=== PATIENT | female | born 1985 | race Caucasian/White ===

== ENCOUNTER 2017-04-06 08:07 | Emergency (ER) | payer MEDICAID ==
[~2017-04-06] VITALS: Ht 160 cm; Wt 60.0 kg
[~2017-04-06 08:07] MED LIST: IBUP600 PO; OXYC1SOL5 PO; PREN0.01 PO
[2017-04-06 08:14] VITALS: BP 125/85; PULSE 103; RESP 16; TEMP 98.5; O2SAT 93
--- NOTE | 2017-04-06 08:38 | PD ---
HPI Chief Complaint: Alcohol/Drug Intoxication Time Seen by Provider: 08:20 Travel History International Travel<30 days: No Contact w/Intl Traveler<30days: No Traveled to known affect area: No History of Present Illness HPI 31yo F with PMH of alcohol abuse is here requesting detox for alcohol. Pt states she last drank 1 bottle of wine yesterday. States she tried detox herself but was not able to do it. States she called different resources and no one would accept medicaid. Pt is anxious, tearful. Denies any fever, cough , chest pain, sob, history of PE/DVT, n/v, abdominal pain, focal weakness or numbness. Pt is on mirena. Denies smoking cig. PFSH Past Medical History ?: Not Allergies-Medications (Allergen,Severity, Reaction): Coded Allergies: No Known Allergies (Unverified , 04/06/17) Reported Meds & Prescriptions Reported Meds & Active Scripts Active Review of Systems Except as stated in HPI: all other systems reviewed are Neg Physical Exam Narrative GENERAL: 31yo F in mild distress. SKIN: Focused skin assessment warm/dry. HEAD: Atraumatic. Normocephalic. EYES: Pupils equal and round. No scleral icterus. No injection or drainage. ENT: No nasal bleeding or discharge. Mucous membranes pink and moist. NECK: Trachea midline. No JVD. CARDIOVASCULAR: Tachycardic in the low 100s. No murmur appreciated. RESPIRATORY: No accessory muscle use. Clear to auscultation. Breath sounds equal bilaterally. GASTROINTESTINAL: Abdomen soft, non-tender, nondistended. MUSCULOSKELETAL: No obvious deformities. No clubbing. No cyanosis. No edema. NEUROLOGICAL: Awake and alert. No obvious cranial nerve deficits. Motor grossly within normal limits. Normal speech. Data Data Last Documented VS Vital Signs Date Time Temp Pulse Resp B/P (MAP) Pulse Ox O2 Delivery O2 Flow Rate FiO2 04/06/17 08:33 16 93 Room Air 04/06/17 08:14 98.5 103 125/85 (98) Orders Orders Complete Blood Count With Diff (04/06/17 08:29) Basic Metabolic Panel (Bmp) (04/06/17 08:29) Bhcg Screen Qualitative (04/06/17 08:29) Chest, Single Ap (04/06/17 ) D-Dimer (04/06/17 08:29) Prothrombin Time / Inr (Pt) (04/06/17 08:29) Act Partial Throm Time (Ptt) (04/06/17 08:29) Sodium Chlor 0.9% 1000 Ml Inj (Ns 1000 M (04/06/17 08:45) Electrocardiogram (04/06/17 ) Alcohol (Ethanol) (04/06/17 08:38) Thiamine Inj (Thiamine Inj) (04/06/17 11:30) Labs Laboratory Tests Test 04/06/17 08:45 White Blood Count 3.9 TH/MM3 Red Blood Count 4.60 MIL/MM3 Hemoglobin 15.2 GM/DL Hematocrit 43.9 % Mean Corpuscular Volume 95.3 FL Mean Corpuscular Hemoglobin 32.9 PG Mean Corpuscular Hemoglobin Concent 34.5 % Red Cell Distribution Width 14.2 % Platelet Count 330 TH/MM3 Mean Platelet Volume 7.2 FL Neutrophils (%) (Auto) 43.7 % Lymphocytes (%) (Auto) 41.9 % Monocytes (%) (Auto) 12.5 % Eosinophils (%) (Auto) 0.8 % Basophils (%) (Auto) 1.1 % Neutrophils # (Auto) 1.7 TH/MM3 Lymphocytes # (Auto) 1.6 TH/MM3 Monocytes # (Auto) 0.5 TH/MM3 Eosinophils # (Auto) 0.0 TH/MM3 Basophils # (Auto) 0.0 TH/MM3 CBC Comment DIFF FINAL Differential Comment Prothrombin Time 10.9 SEC Prothromb Time International Ratio 1.0 RATIO Activated Partial Thromboplast Time 28.0 SEC D-Dimer Quantitative (PE/DVT) 0.33 MG/L FEU Blood Urea Nitrogen 6 MG/DL Creatinine 0.63 MG/DL Random Glucose 104 MG/DL Calcium Level 9.0 MG/DL Sodium Level 140 MEQ/L Potassium Level 3.6 MEQ/L Chloride Level 102 MEQ/L Carbon Dioxide Level 25.7 MEQ/L Anion Gap 12 MEQ/L Estimat Glomerular Filtration Rate 109 ML/MIN Beta HCG, Qualitative LESS THAN 1 MIU/ML Ethyl Alcohol Level 295 MG/DL [facility] Medical Decision Making Medical Screen Exam Complete: Yes Emergency Medical Condition: Yes Differential Diagnosis Alcohol intoxication vs. alcohol withdrawal vs. PE (lower suspicion) vs. aspiration pneumonia vs. anxiety Narrative Course 31yo F with alcohol abuse here requesting detox for alcohol. Pt found to be mildly tachycardic and O2 sat was 93% on RA. No PE risk factors and low suspicion so D-dimer was obtained. D-dimer negative at 0.33. Pt denies any chest pain or sob. Labs reviewed, WBC low at 3.9. negative. BUN unremarkable. Blood alcohol 295. Pt given NS IVF and thiamine. Pt is currently not in withdrawal. CXR negative. Will refer to [facility] for detox for alcohol. Pt already called [facility] and is following up with them today. She is feeling better. Still denies any chest pain or sob. Diagnosis Primary Impression: Alcohol intoxication Qualified Codes: F10.929 - Alcohol use, unspecified with intoxication, unspecified Patient Instructions: General Instructions Departure Forms: Tests/Procedures Additional Instructions: Please follow up with [facility] if you want detox for alcohol. Return to the ED if symptoms worsen. Patient is medically clear to go to [facility] for detox for alcohol. Med/Other Pt SpecificInfo: No Change to Meds Disposition: 01 DISCHARGE HOME Condition: Stable Juliana Gonzalez DO Apr 06, 2017 08:38
[2017-04-06] MEDS ORDERED: SODIUM CHLOR 0.9% 1000 ML INJ 1,000 ML IV ONE (08:45)
[2017-04-06 09:00] LABS: AUTOMATED NEUTROPHIL # 1.7 TH/MM3 (1.8-7.7); BASOPHIL % 1.1 % (0.0-2.0); EOSINOPHIL % 0.8 % (0.0-4.0); HEMATOCRIT 43.9 % (35.0-46.0); HEMO FLAGS DIFF FINAL; LYMPH % 41.9 % (9.0-44.0); LYMPHOCYTE # 1.6 TH/MM3 (1.0-4.8); MEAN CELL VOLUME 95.3 FL (80.0-100.0); MEAN CORPUSCULAR HEMOGLOBIN 32.9 PG (27.0-34.0); MEAN CORPUSCULAR HGB CONC 34.5 % (32.0-36.0); MONO % 12.5 % (0.0-8.0); NEUT % 43.7 % (16.0-70.0); PLATELET COUNT 330 TH/MM3 (150-450); RED CELL DISTRIBUTION WIDTH 14.2 % (11.6-17.2); WHITE BLOOD COUNT 3.9 TH/MM3 (4.0-11.0)
[2017-04-06 09:10] LABS: PROTHROMBIN TIME - PATIENT 10.9 SEC (9.8-11.6)
[2017-04-06 09:11] LABS: ANION GAP 12 MEQ/L (5-15); BICARBONATE 25.7 MEQ/L (21.0-32.0); BLOOD UREA NITROGEN 6 MG/DL (7-18); CHLORIDE 102 MEQ/L (98-107); GLOMERULAR FILTRATION RATE 109 ML/MIN (>89); POTASSIUM 3.6 MEQ/L (3.5-5.1); SODIUM (NA) 140 MEQ/L (136-145)
[2017-04-06 09:16] LABS: BHCG SCREEN QUALITATIVE LESS THAN 1 MIU/ML (0-5)
--- NOTE | 2017-04-06 09:30 | RADRPT ---
EXAM DATE/TIME: 04/06/2017 09:14 [place] COMPARISON: No previous studies available for comparison. INDICATIONS : Evaluate lung status. Patient in detox. MEDICAL HISTORY : None. SURGICAL HISTORY : None. ENCOUNTER: Initial ACUITY: 1 day PAIN SCORE: 0/10 LOCATION: Bilateral chest FINDINGS: A single view of the chest demonstrates the lungs to be symmetrically aerated without evidence of mas s, infiltrate or effusion. The cardiomediastinal contours are unremarkable. Osseous structures are intact. CONCLUSION: Normal examination. Francisco Negrete MD on April 06, 2017 at 9:28 Board Certified Radiologist. This report was verified electronically.
[2017-04-06] MEDS ORDERED: THIAMINE INJ 100 MG in SODIUM CHLORIDE 0.9% INJ 100 ML IV ONE (11:30)
--- NOTE | 2017-04-07 20:18 | EKG ---
Date Performed: 04/06/2017 Time Performed: 09:08:39 PTAGE: 31 years EKG: SINUS TACHYCARDIA ABNORMAL RHYTHM ECG NO PREVIOUS TRACING DOCTOR: America Norris Interpretating Date/Time 04/07/2017 20:17:33
== END 2017-04-06 12:41 | disposition home or self-care (01) ==
LOC: NEPC 08:07
DX: F10.929 Alcohol use, unspecified with intoxication, unspecified (principal); R94.31 Abnormal electrocardiogram [ECG] [EKG]
CPT/HCPCS: 71010; 80048; 80307; 84703; 85025; 85379; 85610; 85730; 93005; 96374; 99284; J3411; J7030